=== PATIENT | female | born 1995 | race African-American/Black ===

== ENCOUNTER 2024-07-17 03:12 | Outpatient (CLI) | payer MEDICAID, SELFPAY ==
[2024-07-17 12:10] LABS: Abs Immature Grans 0.03 10^3/uL (0.0-0.06); Absolute Basophil Count 0.03 10^3/uL (0.0-0.2); Absolute Eosinophil Count 0.05 10^3/uL (0.0-0.7); Absolute Lymphocyte Count 2.33 10^3/uL (1.2-3.4); Absolute Monocyte Count 0.37 10^3/uL (0.1-0.8); Absolute Neutrophil Count 4.19 10^3/uL (1.2-6.7); Basophils % 0.4 %; Eosinophils % 0.7 %; HCT 34.3 % (36.0-46.0); HGB 11.3 g/dL (11.2-15.7); Immature Grans % 0.4 %; Lymphocytes % 33.3 %; MCH 26.2 pg (27.0-33.0); MCHC 32.9 % (32.0-36.0); MCV 79 fL (80-95); MPV 10.5 fL (8.0-11.0); Monocytes % 5.3 %; Neutrophils % 59.9 %; Platelet Count 237 10^3/uL (130-400); RBC 4.32 10^6/uL (3.93-5.22); RDW 13.2 % (11.7-14.6); RDW-SD 37.7 fL
[2024-07-17 18:36] LABS: Hepatitis B Surface Ag Negative (Negative)
[2024-07-17 18:54] LABS: HIV-1/2 Ag & Ab Screen Negative (Negative)
[2024-07-17 19:09] LABS: Hepatitis C Ab w Rflx HCV PCR Negative (Negative)
[2024-07-18 10:16] LABS: Varicella IgG Antibody Positive (See Note)
[2024-07-18 11:54] LABS: Rubella IgG Ab (UVM) Equivocal (See Note)
[2024-07-19 21:08] LABS: Syphilis IgG w/Reflex Nonreactive (Nonreactive)
== END 2024-07-17 03:13 | disposition home or self-care (01) ==
LOC: LBO 03:12
PROVIDERS: Visit Provider Advanced Practice Midwife
DX: Z34.91 Encounter for supervision of normal pregnancy, unspecified, first trimester (principal)
CPT/HCPCS: 36415; 86787; 86803; 86850; 86900; 86901; 87340; 87389; 85025; 86762; 86780

== ENCOUNTER 2024-07-17 11:49 | Outpatient (REF) | payer MEDICAID, SELFPAY ==
[2024-07-18 13:33] LABS: Chlamydia Result Negative (Negative); GC Result Negative (Negative)
== END 2024-07-17 11:50 | disposition home or self-care (01) ==
LOC: LBN 11:49
PROVIDERS: Visit Provider Advanced Practice Midwife
DX: Z34.91 Encounter for supervision of normal pregnancy, unspecified, first trimester (principal)
CPT/HCPCS: 87491; 87591; 87086; 87480; 87510; 87660

== ENCOUNTER 2024-09-13 03:28 | Outpatient (CLI) | payer MEDICAID, SELFPAY ==
--- NOTE | 2024-09-13 07:00 | DI.US_ITS ---
Exam(s) US OB 2-3 TRIMESTER EXAM: US OB 2-3 TRIMESTER CLINICAL HISTORY: ,z34.90. TECHNIQUE: Transabdominal obstetrical ultrasound was performed. COMPARISON: US POCUS EXAM from 06/20/2024 FINDINGS: There is a single viable intrauterine gestation with cardiac activity identified-153 bpm. Amniotic fluid: There is a normal amount of amniotic fluid. Placental location: The placenta is fundal/predominately right-sided, grade 1,with no evidence of ag centa previa.The distance from the tip of the placenta to the internal cervical os is 6 cm. The dist ance between the margin of the placenta and the insertion site of the umbilical cord upon the placent a is 3.2 cm. ANATOMY: A 3 vessel umbilical cord is seen. A four-chamber cardiac view was obtained. Right and left ventricular outflow tracts were imaged. There are no obvious abnormalities of the spinal column evident. There is no obvious abnormal ity of the anterior abdominal wall. stomach and urinary bladder are identified and there is no evidence of hydronephrosis. No abnormalities of the upper lip region are identified. No evidence of choroid plexus cysts i n the brain. Dating parameters place this at approximately 20 weeks and 2 days gestational age. BPD measures 20 weeks and 1 day HC measures 20 weeks and 0 days AC measures 21 weeks and 5 days FL measures 19 weeks and 3 days Estimated weight is 361 gm-0 pounds, 13 ounces Fetus is at the 68th percentile on the Hadlock scale. IMPRESSION:: Single viable intrauterine gestation which is approximately 20 weeks and 2 days gestati onal age, implying an JOY of 01/29/2025. There are no obvious anomalies evident on today's study. The placenta is fundal/right with no evidence of placenta previa. There is a normal amount of amniotic fluid. DATA REPOSITORY:
== END 2024-09-13 03:48 ==
PROVIDERS: Visit Provider Advanced Practice Midwife
DX: Z34.92 Encounter for supervision of normal pregnancy, unspecified, second trimester (principal); Z3A.20 20 weeks gestation of pregnancy
CPT/HCPCS: 76805

== ENCOUNTER 2024-11-15 03:30 | Outpatient (CLI) | payer MEDICAID, SELFPAY ==
[2024-11-15 14:15] LABS: HCT 29.7 % (36.0-46.0); HGB 9.7 g/dL (11.2-15.7); MCHC 32.7 % (32.0-36.0); MCV 83 fL (80-95); MPV 11.1 fL (8.0-11.0); Platelet Count 161 10^3/uL (130-400); RBC 3.59 10^6/uL (3.93-5.22); RDW 13.4 % (11.7-14.6); RDW-SD 40.8 fL; WBC 8.34 10^3/uL (4.4-10.8)
[2024-11-15 14:34] LABS: Glucose,1 Hr (Glucola) 106 mg/dL (80-140)
== END 2024-11-15 03:31 | disposition home or self-care (01) ==
LOC: LBO 03:31
PROVIDERS: PCP Advanced Practice Midwife; Visit Provider Advanced Practice Midwife
DX: Z34.93 Encounter for supervision of normal pregnancy, unspecified, third trimester (principal)
CPT/HCPCS: 36415; 82950; 85027

== ENCOUNTER 2024-12-01 07:15 | Outpatient (CLI) | payer MEDICAID, SELFPAY ==
[2024-12-01 08:50] VITALS: PULSE 91; TEMP 36.8; O2SAT 97
[2024-12-01 08:55] VITALS: PULSE 99; O2SAT 98
[2024-12-01 09:00] VITALS: PULSE 89; O2SAT 100
[2024-12-01 09:05] VITALS: PULSE 90; O2SAT 97
[2024-12-01 10:09] VITALS: BP 100/58; PULSE 93
--- NOTE | 2024-12-01 17:29 | W.OBNST ---
Date of service: 12/01/24 Time of Service: 09:00 NST Evaluation Reason for NST Reasons for Nonstress Test: OTHER, SEE COMMENT Reason for NST Other: rule out SROM Gestational Age Gestational Age in Weeks and Days: 31 Weeks and 3Days Test and Monitor Explained Test/Monitor Explained: Test Explained, Monitor Explained and Patient Verbalized Understanding Vital Signs Blood Pressure: 100/58 Pulse: 93 Urine Results Urine Protein: Negative Urine Ketones: Negative Urine Glucose: Negative Urine Blood: Negative NST Information Date on Monitor: 12/01/24 Time on Monitor: 08:32 Date off Monitor: 12/01/24 Time off Monitor: 09:36 Total Time on Monitor: 64 NST Interventions: None NST Evaluation Patient States Movement: Present FHR Baseline: 155 Variability: Minimal <6 bpm Accelerations: 15x15 Decelerations: Variable NST Results: Reactive NST Results Other: reactive for age, only 31 weeks Note Ultrasound Done: N/A. NST Note Note: No e/o ROM. See record. NST Reviewed and Verified by: Emma Esquivel
[2024-12-01 17:30] VITALS: BP 100/58; PULSE 93
== END 2024-12-01 09:40 ==
LOC: BCD 07:15 → OBS 08:40
PROVIDERS: PCP Advanced Practice Midwife; Visit Provider Advanced Practice Midwife
DX: O47.03 False labor before 37 completed weeks of gestation, third trimester (principal); Z3A.31 31 weeks gestation of pregnancy
CPT/HCPCS: 59025; 87081; 87480; 87510; 87660

== ENCOUNTER 2025-01-04 10:43 | Outpatient (REF) | payer MEDICAID, SELFPAY | END 2025-01-04 10:44 | disposition home or self-care (01) | LOC: LBN 10:43 | PROVIDERS: PCP Advanced Practice Midwife; Visit Provider Obstetrics & Gynecology | DX: Z34.93 Encounter for supervision of normal pregnancy, unspecified, third trimester (principal) | CPT/HCPCS: 87081 ==

== ENCOUNTER 2025-01-10 01:06 | Inpatient (IN) | payer MEDICAID, SELFPAY ==
[2025-01-10] VITALS (32 sets, daily range): BP systolic 99–144; BP diastolic 54–73; PULSE 57–90; RESP 16–18; TEMP 35.9–36.8; O2SAT 98–100
[2025-01-10 02:15] LABS: HCT 32.0 % (36.0-46.0); HGB 10.5 g/dL (11.2-15.7); MCH 27.5 pg (27.0-33.0); MCHC 32.8 % (32.0-36.0); MCV 84 fL (80-95); MPV 11.9 fL (8.0-11.0); Platelet Count 149 10^3/uL (130-400); RBC 3.82 10^6/uL (3.93-5.22); RDW 13.2 % (11.7-14.6); RDW-SD 40.4 fL; WBC 8.01 10^3/uL (4.4-10.8)
--- NOTE | 2025-01-10 05:02 | W.PM.OBHPL1 ---
Date of service: 01/10/25 Time of Service: 05:02 Assessment and Plan Assessment and plan (1) Amniotic fluid leaking: Start date: 01/09/25 Start time: 23:30 Status: Acute Assessment and plan: - 29-year-old at 37+0 here with confirmed ROM, not in labor - Cervical exam deferred as patient desires expectant management for now and will try to get some rest. Discussed that if labor doesn't start on it's own accord, will recommend augmentation. Will evaluate for forebag and perform spinning babies to encourage labor. - Fetus with reactive NST on admission. Patient is low-risk, plan IA in early labor, cEFM if/when indicated. - Pain: Patient plans unmedicated . Discussed options with patient including IV pain meds in early labor, hydrotherapy and nitrous. - MMR vaccine . - Anemia: Hgb 10.5 on admission. - Anxiety: Will monitor for exacerbation. - Anticipate later today. (2) : Status: Acute (3) Rubella non-immune status, antepartum: Status: Acute (4) Anxiety: Status: Chronic (5) Anemia: Status: Chronic Assessment and plan: s/p iron infusions. OB-HPI Labor/Delivery History of Present Illness Reason for Visit: Leaking of amniotic fluid Chief Complaint: Suspected Rupture of Membranes , Associated Signs and Symptoms of Suspected ROM: Gushes of fluid at home around 11:30 PM on 01/09. JOY Calculator Estimated Delivery Date Method Current WG Current Estimate 01/30/25 Ultrasound #1 37w 1d Other Estimates 01/03/25 LMP (Certain) 41w 0d History of Present Expected Delivery Route/Plan - CNM FOB/- Gabriele Adam (3rd child together) BG Rubella immunity is equivocal, offer MMR (pt plans to accept) Wants to avoid epidural (has back pain from prev births), interested in use of tub, shower. Gabriele for labor support, her Mom is here from [place] to help at home. GBS neg at 31 weeks- repeat in 5 weeks 01/04: GBS negative Specific Issues/Plan 1. Declined cfDNA testing, per records from [place] re: CF carrier screen=neg; Hgb electrophoresis=no result recorded 2. Hx anxiety and insomnia; advised benadryl, unisom, magnesium, ref to [facility] for anxiety eval 09/13/24 2a. See [facility] notes from 11/01/24, seeking dental care and PCP 3. Pt accepts referral to [facility] equip tech/CHW program, form filled out and fax'ed by medical office receptionist assistant 08/14/24 4. 5 Ps neg 5. Anemia, Hgb - 9.7, Taking liquid iron daily. Repeat Hgb at 36 weeks- 9.7, iron infusions scheduled. Assessment: History Reviewed & Current Narrative: Karen is a 29-year-old at 37+0 dated by first trimester ultrasound who presents to the Center with leaking of fluid. Reports her water broke around 11:30 p.m., initially it was about 1/3 cup of clear fluid, then about a cup of fluid. She has started to have mild contractions, stronger but shorter than the [place] contractions during her . She denies vaginal bleeding and endorses normal movement. Her OB hx is complicated by back pain after her one of her epidurals and therefore hopes to avoid epidural this labor, if possible. Her has otherwise been complicated by a history of anxiety and insomnia, as well as anemia. She is s/p iron infusions. She is Rubella equivocal and plans vaccination . GBS-negative, Rh+.She is supported by her , Gabriele. Review of Systems All systems reviewed & are unremarkable except as noted in HPI and below Constitutional Constitutional: Reports as per HPI Cardiovascular Cardiovascular: Reports as per HPI Respiratory Respiratory: Reports as per HPI Genitourinary Genitourinary: Reports as per HPI PFSH All Active Problems (Updated 01/10/25 @ 08:20 by Rebeca Downs CNM) Amniotic fluid leaking (Acute) Anemia (Chronic) Anxiety (Chronic) Insomnia (Acute) Rubella non-immune status, antepartum (Acute) (Acute) Family History (Updated 07/17/24 @ 10:46 by Esther Goodwin CNM) Mother Anxiety Social History (Updated 07/17/24 @ 11:54 by Esther Goodwin CNM) Smoking/Tobacco Use Status: Never Smoking risk assessment performed?: Yes Drug use: Never Substance use type: does not use Household members: spouse and children Pets and animals: Yes Pets and animals: dog(s) History History 3 Para 2 Hx # Term Pregnancies 2 Multiple births 0 Hx # Pregnancies 0 Ectopic pregnancies 0 AB induced 0 Hx Number of Living Children 2 AB spontaneous 0 Past Pregnancies Del. Date GA/Weeks # Preg Succ Route Wgt Sex Labor Lgth Anesthesia Location Prov Complic 10/09/17 37 No Yes vaginal 5 lb 2 oz Male long induction [facility] [place], [place] 01/25/21 39 No No vaginal 7 lb 5 oz Female 4 hrs regional [place] Delivery Date: 10/09/17 Last Updated by: Margi Garzon IOL for question of PROM (uncertain), pitocin, fentanyl, epidural. Miguel Ángel- healthy Delivery Date: 01/25/21 Last Updated by: Margi Garzon Spont labor, fast labor Mari - healthy Meds Allergies and Home Medications Allergies Allergy/AdvReac Type Severity Reaction Status Date / Time adhesive Allergy Intermediate Skin Rash Verified 01/04/25 10:24 Home Medications ?Medication ?Instructions ?Recorded ?Confirmed ?Type perelel PO 09/13/24 01/04/25 History ferrous sulfate 325 mg (65 mg 325 mg PO DAILY #60 tabs 11/17/24 12/27/24 Rx iron) tablet Exam Physical Exam Vital signs: Temp Pulse Resp BP Pulse Ox 97.7 F 86 16 104/56 L 98 01/10/25 03:58 01/10/25 02:23 01/10/25 02:06 01/10/25 02:23 01/10/25 02:06 Vital Signs Reviewed: Yes Narrative: ROM Plus and SROM check both negative. Nitrizine paper then positive once patient stood up and had additional gush. Constitutional Constitutional: no acute distress and cooperative Detailed Labor and Delivery Exam Position: DONNA (By abdominal palpation. SVE deferred due to SROM) Epps Score: Cervical Points Exam 0 1 2 3 Dilation Closed 1-2cm 3-4 cm 5-6cm Effacement 0-30% 40-50% 60-70% 80% Consistency Firm Medium Soft Station -3 -2 -1,0 +1,+2 Position Posterior Mid Anterior Amniotic Membrane Status: Ruptured Rupture Method: Spontaneous Amniotic Fluid: Clear Pooling: Negative Nitrazine: Positive Ferning: Absent ROM Plus: Negative Monitor Mode: External Contraction Frequency(min): Intermittent contractions Contraction Intensity: Mild Fetus A Heart Rate Baseline: 145 Monitor Accelerations: 15 X 15 Monitor Decelerations: None Variability: Moderate (6-25 BPM) Est. Weight: 7 lb Date of Membrane Rupture: 01/09/25 Time of Membrane Rupture: 23:30 HEENT Exam HEENT Exam: Normal Neck Exam Neck Exam: Normal Chest/Brest/Axilla Exam Chest Exam: Normal Breast Exam Breast Exam: Not Done Respiratory Exam Respiratory Exam: Normal Cardiovascular Exam Cardiovascular Exam: Normal Abdominal Exam Abdominal Exam: Normal (Gravid, Soft & Non-Tender) Rectal Exam Rectal Exam: Normal Exam Exam: Normal Extremities Exam Extremities Exam: Normal Back/Spine/Pelvis Exam Back Exam: Normal Pelvis Adequate: Yes Skin Exam Skin Exam: Normal Neurological Exam Neurological Exam: Normal Psychiatric Exam Psychiatric Exam: Normal Results Abnormal Lab Findings: Abnormal Labs 01/10/25 02:05 RBC 3.82 L Hgb 10.5 L Hct 32.0 L MPV 11.9 H Risk Assessment Risk for Shoulder Dystocia Historical/Initial OB: NEGATIVE FOR: Pelvic Abnormality, Pre- BMI>30, Previous Shoulder Dystocia or Previous Macrosomia 36 Weeks: NEGATIVE FOR: Current Gestational DM, EFW>4500gms or Maternal Weight Gain>40lbs Increased Risk?: No Delivery Plan @ 36wks: Risk for Pre-Eclampsia Yes, if one or more: NEGATIVE FOR: Hx Pre-E/Gest HTN, Chronic HTN, Multiple Gestation, Pre-gestational DM, Renal Disease, Systemic Lupus or APA Syndrome Yes, if 2 or more: POSITIVE FOR: ethinicty; NEGATIVE FOR: Nulliparity, Age>= 35 yrs, >10yr btwn pregnancies, BMI>30, Mother/Sister w/ Pre-E or Previous IUGR Risk for Post- Hemorrhage Initial: NEGATIVE FOR: Multiple Gestation, Previous PPH, Known Clotting Deficiency, Grand Multiparity or Anticoagulation 36 Weeks: NEGATIVE FOR: Anemia, hgb<10, Low platelets(thrombocytopenia), Gestational HTN or Pre-E, Polyhydraminios or EFW>4500gms At Risk?: No Counseled re: Active Management: Yes Risks Reviewed Risks Reviewed Upon Admission: Yes
--- NOTE | 2025-01-10 11:24 | W.PM.OBNL1 ---
Date of service: 01/10/25 Time of Service: 11:25 Pelvic Exam Comments: Exam deferred Contractions Contraction Frequency(min): infrequent Intensity: Mild Fetus A Assessment Note: FHT reassuring per doptone Assessment and Plan Assessment and plan (1) PROM (premature rupture of membranes): Status: Acute Assessment and plan: A: 29 yo @ 37+1 wks, PROM clear fluid @ 2330 last night, confirmed Prodromal sx, no active labor, cvx @ 2/50%, cephalic presentation per previous exam GBS neg, category 1 tracing on admission low risk for SD and PPH; anemia of treated with IV iron infusion P: Discussed options with pt, she consents to one dose of oral misoprostel If no onset of active labor w/cvx change will move to pitocin induction this afternoon Pt resting at this time, maternal position changes to facilitate positioning Anticipate Objective Vital Signs Reviewed: Yes Subjective Interval history since last seen: Pt relaxing and resting, occasional contractions come that are not painful, no nausea, no bleeding. Results Hemoglobin/Hematocrit: Hgb 10.5 g/dL (11.2-15.7) L 01/10/25 02:05 Hct 32.0 % (36.0-46.0) L 01/10/25 02:05
[2025-01-10] MEDS: miSOPROStol 50 MCG TAB PO (12:35)
--- NOTE | 2025-01-10 17:13 | W.PM.OBNL1 ---
Date of service: 01/10/25 Time of Service: 17:13 Pelvic Exam Dilation: 3 Effacement (%): 80 station: -2 Cervix Position: anterior Consistency: soft Contractions Monitor Mode: Palpation Contraction Frequency(min): q2-4 Intensity: Moderate Fetus A Monitor: Doppler Heart Rate Baseline: 140 FHR Rhythm: Regular Characteristics: Normal Amniotic Membrane Status: Ruptured Assessment and Plan Assessment and plan (1) PROM (premature rupture of membranes): Status: Acute Assessment and plan: A: s/p one dose of 50 mcg misoprostel, PROM x18 hrs increasing labor pattern, cvx change noted FHT cat 1 during EFM monitoring, afebrile, normotensive P: Observe for continued strengthening & progress of labor Expectant management at this time; intermittent FHT checks Anticipate Subjective Interval history since last seen: contractions are every 3 minutes, stronger, and require some concentration. No bleeding, occasionally leaking clear fluid.
--- NOTE | 2025-01-10 19:33 | W.PM.OBNL1 ---
Date of service: 01/10/25 Time of Service: 19:33 Informed Consent Informed Consent: Risk,Benefits,Alternatives Discussed and Other (IV narcotic analgesia) Pelvic Exam Dilation: 7 Effacement (%): 100 station: 0 Contractions Monitor Mode: Palpation Intensity: Moderate/Strong Fetus A Monitor: Doppler Heart Rate Baseline: 140 FHR Rhythm: Regular Characteristics: Normal Amniotic Membrane Status: Ruptured Assessment and Plan Assessment and plan (1) PROM (premature rupture of membranes): Status: Acute Assessment and plan: A: Active labor, approaching transition Coping well, partner at bedside providing effective support P: IV access initiated, will give minimal dose of fentanyl Anticipate Subjective Interval history since last seen: Very intense contractions, nauseated, requesting IV narcotic analgesia, tried nitrous but didn't find it helpful.
[2025-01-10] MEDS: fentaNYL 100 MCG/2 ML VIAL 50 MCG IVP (19:44)
--- NOTE | 2025-01-10 20:35 | OBVDS_ITS ---
Date of service: 01/10/25 Time of Service: 20:30 OB Labor/ Delivery Information Baby A Delivery Delivery Method: Spontaneaous Presentation: Cephalic Cephalic Position: Vertex Vertex Position: Left Occipital Anterior Breech Position: N/A Cord Description-Baby A: 3 Vessels, Nuchal Cord (loose) and Reduced (overhead) Amniotic Fluid: Clear Quantitative Blood Loss: 300 Delivery Outcome: Liveborn Infant Transferred: Remains with Mother Note: Pt received 50 mcg fentanyl slow IVP after cvx exam for 7/100% vtx 0 station and requesting pain medication, FHT per EFM with nml baseline 120 and moderate variability, early decels noted with contractions. She was able to relax between contractions and spontaneously turned to kneeling on the bed, after 20 minutes she felt pelvic pressure and involuntarily bore down to begin , 2nd stage huddle held and of a vigorous female infant accomplished over intact perineum, loose nuchal cord reduced overhead and shoulders delivered with ease, FOB held infant while pt assisted in repositioning to semi-fowlers then baby to mother's arms immediately for S2S. IV Pitocin bolus begun, cord cut and clamped at 5 minutes of age, cord blood collected then [place] placenta delivered intact with 3VC, fundus was firm below umbilicus, lochia was minimal. Vulva and vagina inspected and are without laceration, strong family bonding observed, apgars 8/9, brith weight 3010 gms. Providers Nurse Manager Cardiac Cath: Margi Garzon Nurse: Vaishali Ji Nurse: Evelyn Palm Labor/Delivery Information Number of Babies in Womb: 1 Steroids Given: None Reason Steroids Not Administered: N/A Group Beta Strep: Negative Antibiotics Administered: No Rubella Status: Equivocal Blood Type: A+ Varicella Immunity: Immune Maternal Complications: None Shoulder Dystocia: No Stages of Labor Onset of Labor Date: 01/10/25 Onset of Labor Time: 16:00 Complete Dilatation Date: 01/10/25 Complete Dilatation Time: 20:05 Labor - Stage 1 Duration: 4 hours and 5 minutes ROM Baby A: 01/09/25 ROM Baby A: 23:30 ROM Total Time- Baby A: [id number] Infant Delivery Date-Baby A: 01/10/25 Delivery Time-Baby A: 20:08 Labor Stage 2 Duration: 3 minutes Placenta Delivery Date-Baby A: 01/10/25 Placenta Delivery Time-Baby A: 20:14 Labor-Stage 3 Duration: 6 minutes Total Length of Labor-Baby A: 4 hours and 8 minutes Placenta Cultured: No Placenta Status: Delivered Baby A Gender: Female Gestational Status: Early Term (37-38.6 wks) Gestational Age in Weeks/Days: 37 Weeks and 2 Days weight: 6 lb 10.175 oz Weight Comment: 3010 gms Score-1 Minute Interval(Baby A) Heart Rate-1 minute: 100 BPM or Greater Respiratory Effort- 1 minute: Spontaneous/Strong Cry Muscle Tone-1 minute: Active Movement Reflex Response-1 minute: Minimal Response Color-1 minute: Bluish Hands or Feet Total Score-1 minute: 8 Score-5 Minute Interval(Baby A) Heart Rate- 5 minute: 100 BPM or Greater Respiratory Effort-5 minute: Spontaneous/Strong Cry Muscle Tone-5 minute: Active Movement Reflex Response-5 minute: Prompt Response Color-5 minute: Bluish Hands or Feet Total Score- 5 minute: 9
[2025-01-10] MEDS: Acetaminophen 325 MG TAB 650 MG PO (22:05)
[2025-01-10] MEDS: Ibuprofen 600 MG TAB PO (22:05)
[2025-01-11] MEDS: Acetaminophen 325 MG TAB 650 MG PO ×3 (02:14→18:06)
[2025-01-11] MEDS: Hamamelis Leaf/Glycerin 100 EACH BOX PR (04:30)
[2025-01-11] MEDS: Docusate Sodium 100 MG CAP PO (04:30)
[2025-01-11] MEDS: Ibuprofen 600 MG TAB PO ×3 (04:30→18:07)
[2025-01-11] MEDS: Dibucaine 1% 28 GM TUBE TP (04:30)
[2025-01-11 08:46] VITALS: BP 96/67; PULSE 66; RESP 18; TEMP 36.6; O2SAT 98
--- NOTE | 2025-01-11 09:45 | W.PM.OBPNV1 ---
Date of service: 01/11/25 Time of Service: 09:45 Assessment and Plan Assessment and plan (1) Term delivered: Status: Acute Assessment and plan: A: PPD#1, nml recovery, off to a good start Satisfied with experience P: Routine PP care Written instructions reviewed and given to pt Natural family planning, contraception declined Offer MMR prior to discharge to home F/up planned for 2 & 6 wks Subjective Subjective Patient comments: No complaints, Pain well controlled, Tolerating diet and Flatus present Patient's Mood: happy [place] baby status: Doing well, Nursing well, Rooming in and Strong Bonding Observed feeding status: Exclusively breast feeding Exam Physical Exam Vital signs: Temp Pulse Resp BP Pulse Ox 97.5 F L 65 18 105/68 100 01/11/25 13:24 01/11/25 13:24 01/11/25 13:24 01/11/25 13:24 01/11/25 13:24 Vital Signs Reviewed: Yes Constitutional Constitutional: no acute distress, thin and cooperative HEENT Exam HEENT Exam: Normal Neck Exam Neck Exam: Normal Breast Exam Bilateral: Breast Exam: Normal and Soft Nipple Exam: Normal and Uninjured Respiratory Exam Respiratory Exam: Normal Cardiovascular Exam Cardiovascular Exam: Normal Abdominal Exam Abdomen: Other (soft, nontender) Fundal Exam Fundus: Below Umbilicus and Firm Rectal Exam Rectal Exam: Normal Exam Perineum: Intact Extremities Exam Extremity Exam: Normal, Full ROM and Warm to Touch Back/Spine/Pelvis Exam Back Exam: Normal Skin Exam Skin Exam: Normal Neurological Exam Neurological Exam: Normal Psychiatric Exam Psychiatric Exam: Normal
[2025-01-11 12:00] VITALS: BP 99/56; PULSE 77; RESP 18; O2SAT 98
[2025-01-11 13:24] VITALS: BP 105/68; PULSE 65; RESP 18; TEMP 36.4; O2SAT 100
[2025-01-11 19:00] VITALS: BP 102/59; PULSE 62; RESP 16; TEMP 36.8; O2SAT 98
--- NOTE | 2025-01-11 20:46 | W.PM.OBDISCH ---
Date of service: 01/11/25 Time of Service: 20:46 DS: Diagnosis Discharge Diagnosis (1) Term delivered: Status: Acute Discharge Plan Disposition Patient Disposition: Home Condition: Good Discharge Details Reason For Visit: Leaking of amniotic fluid Admit Date/Time: 01/10/25 01:06 Admit Provider: Rebeca Downs Attending Provider: Rebeca Downs Primary Care Provider: Margi Garzon Hospital Course Hospital Course: PROM without spontaneous labor, induction with misoprostel 50 mcg x1 resulted in active labor and on HD#2, nml course, pt desires discharge to home on PPD#1 (HD#3). Home Meds and New Rx's Prescriptions: No Action perelel PO ferrous sulfate 325 mg (65 mg iron) tablet 325 mg PO DAILY Qty: 60 5RF Discharge Instructions Additional Instructions: Please keep 2 and 6 week appt's with midwives, call for any and all concerns. Stand Alone Forms: BC Instructions, BC Post Vaginal Deliver Activity:: Activity as Tolerated Equipment/Supplies:: No Equipment Needed Diet:: Normal Diet OB:DS Summary Summary Vaginal Delivery Method: Spontaneaous Episiotomy Description: None Laceration Description: None Laceration Extension: N/A Contraception Discussed Contraception Discussed: Yes Contraceptive Plan: Not planning to use, [place] Infant Gender-Baby A: Female weight: 6 lb 10.175 oz Status at Discharge Functional status at discharge: independent ambulation Overall status at discharge: patient is progressing back to baseline Mental Status: mental status grossly normal Speech and Movement: speech and movement normal and speech clear Mood: congruent mood Affect: normal affect Exam Physical Exam Vital signs: Temp Pulse Resp BP Pulse Ox 97.5 F L 65 18 105/68 100 01/11/25 13:24 01/11/25 13:24 01/11/25 13:24 01/11/25 13:24 01/11/25 13:24 Constitutional Constitutional: no acute distress, thin and cooperative HEENT Exam HEENT Exam: Normal Neck Exam Neck Exam: Normal Breast Exam Bilateral: Breast Exam: Normal and Soft Respiratory Exam Respiratory Exam: Normal Cardiovascular Exam Cardiovascular Exam: Normal Abdominal Exam Abdomen: Other (soft, nontender) Fundal Exam Fundus: Below Umbilicus and Firm Rectal Exam Rectal Exam: Normal Exam Perineum: Intact Extremities Exam Extremity Exam: Normal, Full ROM and Warm to Touch Back/Spine/Pelvis Exam Back Exam: Normal Skin Exam Skin Exam: Normal Neurological Exam Neurological Exam: Normal Psychiatric Exam Psychiatric Exam: Normal Additional findings Additional findings: Exam deferred PFSH All Active Problems (Updated 01/11/25 @ 17:18 by Margi Garzon) Term delivered (Acute) Anxiety (Chronic) Insomnia (Acute) Rubella non-immune status, antepartum (Acute) Medical History (Updated 01/11/25 @ 17:18 by Margi Garzon) Anemia Amniotic fluid leaking PROM (premature rupture of membranes) Family History (Updated 07/17/24 @ 10:46 by Esther Goodwin CNM) Mother Anxiety Social History (Updated 07/17/24 @ 11:54 by Esther Goodwin CNM) Smoking/Tobacco Use Status: Never Smoking risk assessment performed?: Yes Drug use: Never Substance use type: does not use Household members: spouse and children Pets and animals: Yes Pets and animals: dog(s) History History 3 Para 2 Hx # Term Pregnancies 2 Multiple births 0 Hx # Pregnancies 0 Ectopic pregnancies 0 AB induced 0 Hx Number of Living Children 2 AB spontaneous 0 Past Pregnancies Del. Date GA/Weeks # Preg Succ Route Wgt Sex Labor Lgth Anesthesia Location [facility] 10/09/17 37 No Yes vaginal 5 lb 2 oz Male long induction [place], [place] 01/25/21 39 No No vaginal 7 lb 5 oz Female 4 hrs [facility] Delivery Date: 10/09/17 Last Updated by: Margi Garzon IOL for question of PROM (uncertain), pitocin, fentanyl, epidural. Miguel Ángel- healthy Delivery Date: 01/25/21 Last Updated by: Margi Garzon Spont labor, fast labor Mari - healthy DS: Data Vitals/I&O Vitals and I&O: Vital Signs Temperature 97.5 F L 01/11/25 13:24 Temperature Source Oral 01/11/25 13:24 Pulse 65 01/11/25 13:24 Pulse Rhythm Regular 01/11/25 08:46 Respiratory Rate 18 01/11/25 13:24 Blood Pressure 105/68 01/11/25 13:24 Blood Pressure Mean 80 01/11/25 13:24 Pulse Oximetry 100 01/11/25 13:24 Oxygen Delivery Method Room Air 01/10/25 02:06 Oxygen Flow Rate 0 07/09/25 02:06 Pain Level 4 01/11/25 04:30 Comment patient denies feeling lightheaded or dizzy at this time 01/11/25 12:00 Intake & Output 01/10/25 01/11/25 01/11/25 23:59 11:59 23:59 Intake Total Output Total 200 / 200 800 / 800 Balance -190 / -190 -800 / -800 Intake: IV Output: Urine 200 / 200 800 / 800
[2025-01-12 09:59] VITALS: BP 126/79; PULSE 111
== END 2025-01-11 21:26 | disposition home or self-care (01) | DRG 807 ==
PROVIDERS: Admitting Provider Advanced Practice Midwife; PCP Advanced Practice Midwife; Visit Provider Advanced Practice Midwife
DX: O42.92 Full-term premature rupture of membranes, unspecified as to length of time between rupture and onset of labor (principal); Z37.0 Single live birth; Z3A.37 37 weeks gestation of pregnancy; Z28.39 Other underimmunization status; O99.02 Anemia complicating childbirth; D64.9 Anemia, unspecified; O99.344 Other mental disorders complicating childbirth; F41.9 Anxiety disorder, unspecified; O69.81X0 Labor and delivery complicated by cord around neck, without compression, not applicable or unspecified
CPT/HCPCS: 36415; 84112; 85027; 86850; 86900; 86901; J3010